=== PATIENT | female | born 1945 | race Caucasian/White ===

== ENCOUNTER → 2019-02-09 | Day surgery (SDC) | payer MEDICARE, BC ==
--- NOTE | 2019-02-09 14:59 | USB ---
EXAMINATION TYPE: US discontinued breast bx RT DATE OF EXAM: 02/09/2019 COMPARISON: Outside mammogram of the right breast dated 01/19/2019 CLINICAL HISTORY: R92.8. FINDINGS: The right breast was scanned in its entirety including the retroareolar location. A benign- appearing oil cyst is seen at the 2:00 position. Multiple areas of dense heterogeneous tissue are see n throughout with few prominent retroareolar ducts. No discrete suspicious mass is seen to warrant bi opsy however when correlated with the prior mammogram dated 01/19/2019 there remains recommendation of biopsy of the persistent distortion present on 3-D imaging. However the 3-D stereotactic equipment i s not available at this institution and biopsy would be recommended at an outside institution. Findin gs and recommendations were discussed with the patient and her family at length. IMPRESSION: BI-RADS 4 suspicious. 3-D biopsy is recommended for the persistent right breast distorti on. No definitive sonographic correlate for biopsy.
== END ==
LOC: RADUSWWP 12:38
PROVIDERS: ATTEND Internal Medicine
DX: N63.10 Unspecified lump in the right breast, unspecified quadrant (principal); Z53.8 Procedure and treatment not carried out for other reasons

== ENCOUNTER 2019-09-28 07:50 | Day surgery (SDC) | payer MEDICARE, BC ==
[2019-09-23 09:12] VITALS: BMI 34.0
[~2019-09-28 07:50] MED LIST: LACTATED RINGERS 1,000 ML IV SCH; LIDOCAINE 1% 20 ML VIAL (10MG/ML) FOR IV START INTRADERMA PRN
[2019-09-28 08:14] VITALS: TEMP 96.5
[2019-09-28 08:27] LABS: Glucose,Whole Blood 128 mg/dL (75-99)
[2019-09-28] MEDS ORDERED: PROPOFOL 10 MG/ML 20 ML VIAL IV ONE (09:18)
[2019-09-28] MEDS ORDERED: LIDOCAINE 1% INJ 10MG/ML (20 ML MDV) ONE (09:18)
--- NOTE | 2019-09-28 09:40 | P.PCN ---
Date of Procedure: 09/28/19 Procedure(s) Performed: BRIEF HISTORY: Patient is a 73-year-old pleasant white female scheduled for an elective colonoscopy as a part of surveillance of prior history of colon cancer diagnosed in 2012 for which she underwent right hemicolectomy. Her last colonoscopy was 3 years ago. She completed severe post mental diarrhea with normocytic from 8-10 a day which are loose to watery in consistency. PROCEDURE PERFORMED: Colonoscopy with biopsy and snare polypectomy. PREOPERATIVE DIAGNOSIS: History of colon cancer in 2013 status post right hemicolectomy. IV sedation per Anesthesia. PROCEDURE: After informed consent was obtained, the patient, was brought into the endoscopy unit. IV sedation was administered by Anesthesia under continuous monitoring. Digital rectal examination was normal. Initially the Olympus CF-160 flexible video colonoscope was then inserted in the rectum, gradually advanced into the right colon with ileocolic anastomosis was identified and appeared normal. Mucosa of the transverse colon, descending colon, sigmoid colon, and rectum appeared normal. In the descending colon there was a 5 mm sessile polyp that was removed by snare polypectomy. Moderate sigmoid diverticula seen. Biopsies were done from ascending and descending colon to rule out microscopic/collagenous colitis Retroflexion was performed in the rectum and no lesions were seen. The patient tolerated the procedure well. IMPRESSION: 5 mm sessile descending colon polyp status post snare polypectomy Normal ileocolic anastomosis Moderate sigmoid diverticulosis RECOMMENDATIONS: Findings of this examination were discussed with the patient as well as a family. She was advised to follow with the biopsy results. She can have a repeat colonoscopy in 3 years.
[2019-09-28 09:44] VITALS: RESP 16
[2019-09-28 10:00] VITALS: BP 143/68; PULSE 78
== END 2019-09-28 10:38 | disposition home or self-care (01) ==
LOC: ORWHC2ENDO 07:50
PROVIDERS: ATTEND Internal Medicine Gastroenterology
DX: Z12.11 Encounter for screening for malignant neoplasm of colon (principal); K63.5 Polyp of colon; K57.30 Diverticulosis of large intestine without perforation or abscess without bleeding; Z85.038 Personal history of other malignant neoplasm of large intestine; I10 Essential (primary) hypertension; E78.5 Hyperlipidemia, unspecified; E11.9 Type 2 diabetes mellitus without complications; E07.9 Disorder of thyroid, unspecified; K21.9 Gastro-esophageal reflux disease without esophagitis; Z90.49 Acquired absence of other specified parts of digestive tract; Z79.890 Hormone replacement therapy; Z79.899 Other long term (current) drug therapy; Z79.84 Long term (current) use of oral hypoglycemic drugs; Z90.710 Acquired absence of both cervix and uterus; Z98.890 Other specified postprocedural states; Z86.69 Personal history of other diseases of the nervous system and sense organs
CPT/HCPCS: 88305; 45380; 45385; J2001; J2704

== ENCOUNTER 2023-01-02 08:53 | Day surgery (SDC) | payer MEDICARE, BC ==
[2022-12-31 13:53] VITALS: BMI 36.3
[~2023-01-02 08:53] MED LIST changes: -LIDOCAINE 1% 20 ML VIAL (10MG/ML) FOR IV START INTRADERMA PRN
[2023-01-02 09:23] VITALS: TEMP 97.2
[2023-01-02 09:26] LABS: Glucose,Whole Blood 142 mg/dL (70-110)
[2023-01-02] MEDS ORDERED: PROPOFOL 10 MG/ML 20 ML VIAL IV ONE (09:27)
--- NOTE | 2023-01-02 09:43 | P.PCN ---
Date of Procedure: 01/02/23 Procedure(s) Performed: BRIEF HISTORY: Patient is a 77-year-old pleasant white female scheduled for an elective colonoscopy as a part of surveillance of prior history of colon cancer diagnosed in 2012 for which she underwent right hemicolectomy. I'll as well as colonoscopy was 3 years ago revealed a small adenoma. PROCEDURE PERFORMED: Colonoscopy. PREOPERATIVE DIAGNOSIS: History of colon cancer in 2013 status post right hemicolectomy/screening for colon cancer. IV sedation per Anesthesia. PROCEDURE: After informed consent was obtained, the patient, was brought into the endoscopy unit. IV sedation was administered by Anesthesia under continuous monitoring. Digital rectal examination was normal. Initially the Olympus CF-160 flexible video colonoscope was then inserted in the rectum, gradually advanced into the right colon with ileocolic anastomosis was visualized without any difficulty. Careful examination was performed as the scope was gradually being withdrawn. The anastomosis appeared normal. Mucosa of the transverse colon, descending colon, sigmoid colon, and rectum appeared normal. Moderate sigmoid diverticulosis. Retroflexion was performed in the rectum and no lesions were seen. The patient tolerated the procedure well. IMPRESSION: Normal-appearing colon from rectum to right colon with normal ileocolic anastomosis. Moderate sigmoid diverticulosis RECOMMENDATIONS: Findings of this examination were discussed with the patient as well as a family. She was advised to have a repeat surveillance colonoscopy in 3 years because of the prior history of colon cancer.
[2023-01-02 09:50] VITALS: RESP 16
[2023-01-02 10:01] VITALS: BP 120/75; PULSE 65
== END 2023-01-02 10:35 | disposition home or self-care (01) ==
LOC: ORWHC2ENDO 08:53
PROVIDERS: ATTEND Internal Medicine Gastroenterology
DX: Z12.11 Encounter for screening for malignant neoplasm of colon (principal); I10 Essential (primary) hypertension; E78.5 Hyperlipidemia, unspecified; G47.33 Obstructive sleep apnea (adult) (pediatric); E11.9 Type 2 diabetes mellitus without complications; Z80.8 Family history of malignant neoplasm of other organs or systems; Z79.899 Other long term (current) drug therapy; Z98.890 Other specified postprocedural states; Z85.038 Personal history of other malignant neoplasm of large intestine
CPT/HCPCS: J2704; G0105